=== PATIENT | male | born 1955 | race Caucasian/White ===

== ENCOUNTER 2025-10-01 09:53 | Outpatient (CLI) | payer MEDICARE, MEDICAID ==
[~2025-10-01] VITALS: Ht 169.5 cm; Wt 81.6 kg
[2025-10-01 10:41] LABS: ABG BASE EXCESS 0.3 mmol/L (-2.0-3.0); ABG HCO3 24.4 mmol/L (21.0-28.0); ABG OXYGEN SATURATION 94.7 % (94.0-98.0); ABG PCO2 (T) 37.7 mmHg (35.0-48.0); ABG PH (T) 7.429 (7.350-7.450); ABG PO2 (T) 71.4 mmHg (83.0-108.0); ALLEN'S TEST POSITIVE; FCOHb 7.5 % (0.5-1.5); FHHb 4.9 % (0.0-5.0); FIO2 21.0 mmHg/%; FMetHb 0.3 % (0.0-1.5); FO2Hb 87.3 % (94.0-98.0); MODE ROOM AIR; PATIENT TEMPERATURE 37.0; TOTAL HEMOGLOBIN 14.7 G/dl (13.5-17.5)
[2025-10-01] MEDS: albuterol 2.5 MG/3 ML nebule NEB ONE (11:27)
[2025-10-01 11:28] VITALS: PULSE 54; RESP 16; O2SAT 54
[2025-10-01 11:43] VITALS: PULSE 71; RESP 15
--- NOTE | 2025-10-01 12:20 | PROCEDURE NOTE - Respiratory ---
Procedure Note-Respiratory Providers to CC Copies To 1: CHUY CRANDALL MD Procedure Name: This is a complete pulmonary function study dated October 01, 2025. Hemoglobin measurement was done as part of the study. There was also a room air blood gas obtained from this patient on the same date. Spirometry measurements: The forced vital capacity and the FEV1 measurements are normal. The FEV1 ratio is normal. The flow rate measurements are normal. After inhaled bronchodilator was administered there is no appreciable change in the flow volume curve. Lung volume measurements: The total lung capacity and the functional residual capacity measurements are normal. Lung diffusion measurement: The DLCO measurement is normal. We see that both the KVO measurement and the alveolar volume measurements are normal. We note that the hemoglobin measurement is normal. Airway resistance measurement: The airway resistance is not elevated. Overall conclusion: Normal pulmonary function study. We have no previous studies for comparison. Even though this patient has a history of heavy smoking, his pulmonary physiology remains in the normal range. We still recommend abstinence from cigarette smoking , in hopes that the patient will be able to preserve his pulmonary capacity in the future. A blood gas was drawn from this patient while the patient was breathing ambient air. The blood pH is normal. The pCO2 is normal. There is mild reduction in the room air PO2 measuring at 71 mmHg. TROY RAMOS MD Oct 01, 2025 12:19
--- NOTE | 2025-10-01 12:21 | RADIOLOGY REPORT ---
CLINICAL HISTORY: COPD COUGH TECHNIQUE: Chest 2 views of the chest were obtained. COMPARISON: None FINDINGS: The heart size and pulmonary vasculature are normal. The lungs are clear. No pleural effusion is present. There is a thoracic epidural pain catheter lead. IMPRESSION: NO ACUTE CARDIOPULMONARY PROCESS.
== END 2025-10-01 23:59 | disposition home or self-care (01) ==
LOC: RT 09:53
PROVIDERS: ATTEND Internal Medicine Critical Care Medicine
DX: J44.9 Chronic obstructive pulmonary disease, unspecified (principal); R05.9 Cough, unspecified
CPT/HCPCS: 36600; 71046; 82803; 85018; 94060; 94727; 94729; 94760; C1758